=== PATIENT | male | born 1985 | race Caucasian/White ===

== ENCOUNTER 2019-07-20 22:00 | Emergency (ER) | payer OTHER ==
[~2019-07-20] VITALS: Ht 180.3 cm; Wt 122.9 kg
[2019-07-20 22:06] VITALS: Ht 180.3 cm; Wt 122.9 kg
[2019-07-20 23:19] VITALS: BP 133/85
== END 2019-07-20 23:19 | disposition home or self-care (01) ==
LOC: ED 22:00
DX: L02.811 Cutaneous abscess of head [any part, except face] (principal)